=== PATIENT | female | born 1975 | race Caucasian/White ===

== ENCOUNTER 2017-12-01 19:18 | Emergency (ER) | payer BC, MEDICAID ==
[2017-12-01] MEDS: PROCHLORPERAZINE 10 MG TAB PO (20:32)
[2017-12-01] MEDS: DIPHENHYDRAMINE 50 MG INJ IM (20:33)
[2017-12-01] MEDS: KETOROLAC 30 MG INJ IM (20:33)
[2017-12-01] MEDS ORDERED: ACETAMINOPHEN 500 MG TAB (21:58)
== END 2017-12-01 21:50 | disposition home or self-care (01) ==
LOC: FTE 19:18
DX: R51 Headache (principal); Z79.82 Long term (current) use of aspirin
CPT/HCPCS: 81025; 96372; 99284-25